=== PATIENT | female | born 1990 | race Caucasian/White ===

== ENCOUNTER → 2021-04-03 11:42 | Outpatient (BNVA) | payer MEDICAID, SELFPAY | PROVIDERS: Family Provider Nurse Practitioner; PCP Nurse Practitioner; Visit Provider Nurse Practitioner Family | DX: Z20.822 Contact with and (suspected) exposure to COVID-19 (principal); H66.001 Acute suppurative otitis media without spontaneous rupture of ear drum, right ear | CPT/HCPCS: 87635 ==

== ENCOUNTER → 2021-04-12 12:05 | Outpatient (BNVA) | payer MEDICAID, SELFPAY | PROVIDERS: Family Provider Nurse Practitioner; PCP Nurse Practitioner; Visit Provider Nurse Practitioner Family | DX: M54.5 Low back pain (principal); R05 Cough; Z12.4 Encounter for screening for malignant neoplasm of cervix; Z01.419 Encounter for gynecological examination (general) (routine) without abnormal findings | CPT/HCPCS: 71046; 80053; 80061; 81000; 83036; 84403; 84443; 85025; 87491; 87591; 87661; 87806; 88175 ==

== ENCOUNTER → 2021-05-22 13:36 | Outpatient (BNVA) | payer MEDICAID, SELFPAY | PROVIDERS: Family Provider Nurse Practitioner; PCP Nurse Practitioner; Visit Provider Nurse Practitioner Family | DX: Z20.822 Contact with and (suspected) exposure to COVID-19 (principal) | CPT/HCPCS: 87635 ==

== ENCOUNTER → 2021-05-31 07:57 | Outpatient (BNVA) | payer MEDICAID, SELFPAY | PROVIDERS: Family Provider Nurse Practitioner; PCP Nurse Practitioner; Visit Provider Obstetrics & Gynecology | DX: R87.612 Low grade squamous intraepithelial lesion on cytologic smear of cervix (LGSIL) (principal) | CPT/HCPCS: 81025; 88305 ==

== ENCOUNTER 2021-06-12 13:15 | Outpatient (CLI) | payer MEDICAID, SELFPAY ==
--- NOTE | 2021-06-12 13:22 | US_ITS ---
WS: [id number] ULTRASOUND BILATERAL BREAST, limited HISTORY: SMALL LUMP 6 O'CLOCK LEFT BREAST COMPARISON: None available. TECHNIQUE: 2-D and Doppler. RIGHT breast, limited. Ultrasound performed from 7-12 o'clock. No underlying abnormalities are identi fied. No solid or cystic masses or shadowing. LEFT breast, limited. Ultrasound performed from 6:00 to 12:00. No solid or cystic masses or shadowing . US/US breast BI limited* [id number] IMPRESSION: BI-RADS: 1-Negative FOLLOW-UP: See Report Negative bilateral breast ultrasound. No additional imaging necessary at this t dulce maria.
== END 2021-06-12 13:16 | disposition home or self-care (01) ==
LOC: RAD 13:16
PROVIDERS: PCP Nurse Practitioner; Visit Provider Nurse Practitioner Family
DX: N63.25 Unspecified lump in the left breast, overlapping quadrants (principal)
CPT/HCPCS: 76642

== ENCOUNTER → 2021-07-05 13:04 | Outpatient (BNVA) | payer MEDICAID, SELFPAY | PROVIDERS: PCP Nurse Practitioner; Visit Provider Obstetrics & Gynecology | DX: R39.9 Unspecified symptoms and signs involving the genitourinary system (principal); R10.2 Pelvic and perineal pain | CPT/HCPCS: 76830; 81000 ==

== ENCOUNTER → 2021-08-23 08:19 | Outpatient (BNVA) | payer MEDICAID, SELFPAY | PROVIDERS: PCP Nurse Practitioner Family; Visit Provider Obstetrics & Gynecology | DX: Z20.822 Contact with and (suspected) exposure to COVID-19 (principal); R10.2 Pelvic and perineal pain | CPT/HCPCS: 87635 ==

== ENCOUNTER 2021-08-28 12:55 | Observation (INO) | payer MEDICAID, SELFPAY ==
[2021-08-26 10:43] VITALS: BMI 37.5
[2021-08-26 10:56] LABS: OR HCG Qualitative Urine Negative (Negative)
--- NOTE | 2021-08-26 15:52 | ANES.PREANE2 ---
Pre-Anesthetic Assessment Pre-Anesthetic Assessment: Height/Weight: Height 1.5 m Weight 84.368 kg Proposed Procedure: Operation Date: 08/28/21 09:05 Proposed Procedures p Laparoscopic Assist Vaginal Hysterectomy 74202 R10.2(Not Applicable) - Nahun Mcgowan MD Was Beta Aletha taken within 24 hours: N/A Was Clonidine taken within 24 hours: N/A Social: Social History: Tobacco and No alcohol Exam: Pre-Anes Outpt Exam: alert, oriented x 3, clear to auscultation bilaterally and regular rate & rhythm Airway: Submandibular: WNL Cervical ROM: WNL MP: 2 Dentition: Full Pulmonary: Pulmonary: Asthma and COPD Metabolic: Metabolic: Morbid obesity Anesthetic Plan: ASA status: 2 Anesthesia: General Risk of > 500 ml blood loss (7ml/kg in children): No PFSH Anesthesia PFSH: Medical History Depression PCOS (polycystic ovarian syndrome) PID (pelvic inflammatory disease) Surgical History Hx of laparoscopy Hx of tubal ligation Family History Mother , age 46; lung Cancer Grandmother Cancer lung and cervical Diabetes Stroke Family/Other Breast cancer maternal aunts x 3 Denies family history of CAD (coronary artery disease) Clotting disorder Bleeding disorder Social History (Updated 08/26/21 @ 08:55 by Shaista Kumar RN) Smoking and tobacco status: current every day smoker cigarettes [ Other cigarette details: less than 1 ppd ] Alcohol intake: current Alcohol intake frequency: holidays/special occasions only Alcohol type: beer Substance/Drug Use: current Substance/Drug use frequency: few times a month Substance/Drug use type: Marijuana Other substance/drug use details: last used last week Female Reproductive History: Date of last menstrual period: 08/23/21 Data Anesthesia Other Labs: Laboratory Results - last 48 hr 08/26/21 10:36 Urine HCG, Qual Negative Cardiac Studies: No Data to Display
[2021-08-28] VITALS (19 sets, daily range): BP systolic 111–155; BP diastolic 68–113; PULSE 57–102; RESP 16–18; TEMP 36.2–37; O2SAT 95–99
[2021-08-28] MEDS: scopolamine 1.5 Patch 1 PATCH TRANSDERMA (10:24)
[2021-08-28] MEDS: sodium chloride 0.9% 500 ML IV (10:25)
--- NOTE | 2021-08-28 10:44 | W.PM.OPSUD ---
Surgery/Procedure H&P Update DATE OF PROCEDURE: August 28, 2021 DATE H&P PERFORMED: 08/26/21 H&P UPDATE INFORMATION: I have reviewed H&P completed within last 30 days, I have examined patient prior to procedure and No changes to prior documentation PREOP DIAGNOSIS: Chronic pelvic pain PLANNED PROCEDURE: Operation Date: 08/28/21 11:05 Proposed Procedures p Laparoscopic Assist Vaginal Hysterectomy 84695 R10.2(Not Applicable) - Nahun Mcgowan MD
[2021-08-28] MEDS: sodium chloride 0.9% 1,000 ML 30 ML IV (10:50)
--- NOTE | 2021-08-28 10:52 | P.ANESUD_ITS ---
Pre-Anesthetic Update Pre-Anesthetic Assessment: Date of Surgery/Procedure: 08/28/21 Preop Malini gnosis: Chronic pelvic pain Proposed Procedure: Operation Date: 08/28/21 11:05 Proposed Procedures p Laparoscopic Assist Vaginal Hysterectomy 74427 R10.2(Not Applicable) - Nahun Mcgowan MD Any changes to Pre-Anesthetic Assessment?: No Last Intake: Intake Last Liquid Date 08/27/21 Last Liquid Time 22:00 Last Solid Date 08/27/21 Last Solid Time 20:00 Labs Last 48hrs: Laboratory Results - last 48 hr 08/26/21 10:36 Urine HCG, Qual Negative Vitals: Temperature 98.6 F 08/28/21 09:44 Temperature Source Temporal Artery S can 08/28/21 09:44 Pulse Rate 71 08/28/21 09:44 Respiratory Rate 18 08/28/21 09:44 Blood Pressure 138/82 08/28/21 09:44 Blood Pressure Alexa n 100 08/28/21 09:44 Pulse Oximetry 98 08/28/21 09:44 Oxygen Delivery Me thod 08/28/21 09:45 Exam: Pre-Anes Outpt Exam: alert, oriented x 3, clear to auscultation bilaterally and regular rate & rhythm Cardiac Studies: No Data to Display
[2021-08-28 10:54] LABS: Basophils % 0.4 %; Eosinophils # 0.1 10^3/uL (0.0-0.8); Eosinophils % 1.6 %; Hematocrit 44.5 % (37.0-47.0); Hemoglobin 14.7 g/dL (11.5-15.3); Lymphocytes # 2.2 10^3/uL (0.8-4.8); Lymphocytes % 31.4 %; Mean Corpuscular Hemoglobin 30.8 pg (28.0-34.0); Mean Corpuscular Volume 93.1 fl (81-99); Mean Platelet Volume 10.7 fL (7.4-10.4); Monocytes # 0.3 10^3/uL (0.2-0.9); Monocytes % 4.2 %; Neutrophils # 4.26 10^3/uL (1.8-7.7); Neutrophils % 62.3 %; Nucleated Red Blood Cells % 0 %; Platelet Count 254 10^3/cmm (130-400); Red Blood Count 4.78 10^6/uL (4.1-5.3); Red Cell Distribution Width 12.8 % (12.1-15.1); White Blood Count 6.9 10^3/uL (4.0-10.0)
[2021-08-28] MEDS: ceFOXitin 2,000 MG in sodium chloride 0.9% (plus) 50 ML 100 MG IV (10:55)
[2021-08-28 11:08] LABS: Alanine Aminotransferase 13 U/L (0-33); Albumin Level 4.5 g/dL (3.5-5.2); Alkaline Phosphatase 54 IU/L (35-105); Anion Gap 17.1 (5-19); Aspartate Amino Transferase 14 U/L (0-32); Blood Urea Nitrogen 9 mg/dL (6-20); Calcium 8.4 mg/dL (8.5-10.5); Carbon Dioxide 21 mmol/L (22-29); Chloride 106 mmol/L (98-107); Globulin 1.9 g/dL (1.3-4.6); Glomerular Filtration Rate 99.6 mL/min (90-130); Glucose 89 mg/dL (65-115); Osmolality Calculated 288 mOsm/kg (285-295); Potassium 4.1 mmol/L (3.5-5.1); Sodium 140 mmol/L (136-145); Total Bilirubin 0.6 mg/dL (0.15-1.2); Total Protein 6.4 g/dL (6.6-8.7)
[2021-08-28 11:10] LABS: OR HCG Qualitative Urine Negative (Negative)
[2021-08-28 11:43] LABS: Urine Color Dark Yellow (Yellow)
[2021-08-28 11:44] LABS: Add Urine Microscopic? YES; Bacteria Urine 1+ /hpf; Bilirubin Urine Neg (Negative); Blood Urine 3+ (Negative); Glucose Urine UA Norm (Normal); Ketones Urine Negative (Negative); Leukocyte Esterase Urine Negative (Negative); Mucus Urine 1+ /hpf; Nitrate Urine Negative (Negative); Protein Urine Neg (Negative); RBC Urine 15-25 /hpf (0-2); Urine Appearance Hazy (CLEAR); Urobilinogen Urine Norm (Negative); WBC Urine 0-4 /hpf (0-5); pH Urine 5 (5-7)
[2021-08-28 11:45] LABS: Add Urine Culture? No
--- NOTE | 2021-08-28 12:23 | P.OP_ITS ---
Operative Report Date of procedure: August 28, 2021 Pre-op Diagnosis: Chronic pelvic pain Post-op diagnosis: same Post-op Findings: Normal size uterus Procedure Done: Laparoscopic-assisted total vaginal hysterectomy Specimens removed/disposition: Uterus Pathology: Uterus Surgeon: Nahun Mcgowan MD Anesthesia: General Estimated blood loss (mL): 200 IV fluids (mL): 700 Urine output (mL): 400 Condition: stable Disposition: PACU Procedure: After discussing informed consent again, the patient was taken to the operating room where general anesthesia was administered. She was placed in the dorsal lithotomy position in low stirrups and prepped and draped in sterile fashion. Pre-Procedure Time-Out verifying the correct patient identity, correct procedure verified with consent, correct site and side, correct patient position, availability of correct implants and any special equipment or requirements was performed and acknowledge by the OR team. After the initial preparation, the procedure commenced at the vagina. With a Bookwalter vaginal retractor was place to visualize the cervix; the anterior and posterior lips of the cervix were separately grasped and clamped with morris tooth tenaculum. The cervix was then dilated to a #6 hegar dilator an d a uterine manipulator within the uterine cavity for manipulation purposes being careful not to puncture the uterus. A Nathan catheter was placed in the bladder. Attention was then turned to the abdomen. The umbilical region was infiltrated with 0.5% Marcaine with epinephrine. Following infiltration with Marcaine, an intraumbilical incision was made and the Verres needle was gently advanced taking care to feel for the typical sensation of penetrating the peritoneum. With CO2 infiltration, an opening pressure of 5 mmHg was noted, and following this, a pneumoperitoneum of 15 mmHg was created. A 5 mm Optiview trocar was then passed through the same incision under direct visualization. Trocar was removed and the laparoscope was then inserted through the trocar sleeve. Visualization of the peritoneal cavity was then obtained and a brief inspection did not reveal any signs of complications from entry. Under direct observation, a second incision was made 3 cm above the symphysis pubis, and a 5 mm trocar and sleeve were admitted into the abdomen under direct, laparoscopic visualization without complication. Once the placement of the ports was complete, the actual laparoscopic procedure began. The pelvic contents were visualized and noted an enlarged irregular uterus, deep cul-de-sac, normal bilateral fallopian tubes and ovaries normal, normal appendix, and both ureters were identified crossing the pelvic brim and pelvic sidewall. The mesosalpinx was then sequentially, clamped, ligated, and cut using the Enseal device working alongside the length of the tube and towards the cornua. The left round ligament was grasped coagulated/sealed and transected using Enseal device. The left broad ligament was opened down to the level of the uterine artery and vein. The right mesosalpinx was then sequentially, clamped, ligated, and cut using the Enseal device working alongside the length of the tube and towards the cornua. The right round ligament was grasped coagulated/sealed and then transected with the Enseal device, and the right broad ligament was opened down to the level of the right uterine artery and vein. Peritoneum of the lower uterine segment was entered using Enseal, and the bladder was dissected off the lower uterine segment using blunt dissection. Careful inspection revealed complete hemostasis. Attention was then turned to the vaginal aspect of the surgery. The Nathan catheter was clamped. A Bookwalter vaginal retractor was placed in the vagina and the uterine manipulator was removed. The tenaculum was repositioned anteriorly and posteriorly. A circumferential incision was made at the cervical vaginal reflection using cautery. This was undermined first anteriorly and a colpotomy made without difficulty. This was then repeated posteriorly and a similar colpotomy made. Beginning first on the patient's left, the uterosacral and cardinal ligament was clamped, sealed, divided with the Enseal device and suture ligated. Two bites were required to reach the previous dissection margin of the left side. The same process was then repeated on the patient's right hand side, at which point, the specimen was completely freed. Once the sutures had been placed and the pedicles secured, the uterus along with both tubes and ovaries were removed transvaginally without difficulty. All pedicles were inspected and hemostasis was confirmed. The patietn was given indigo carmine. The vaginal vault was then oversewn with a running locking Vicryl suture, securing first the posterior edge of the cuff followed by the anterior edge. Good hemostasis was obtained. Two [id number] sutures were then placed across the vaginal vault to close it. Once these had been tied off, all sutures were trimmed. All instruments were removed from the vagina at this time. Then attention was again turned back to the abdomen and inspected the abdomen to ensure complete hemostasis. Once the entire abdomen was inspected. The ports were then removed under direct visualization being sure to note hemostasis of the port sites on removal. The incisions were then closed with interrupted Monocryl sutures and Dermabond adhesive. The patient tolerated the procedure well, anesthesia reversed, and the patient was taken to the recovery room in stable condition. All sponges, instruments, and sharps were counted and correct x 3. Associated Problem List Diagnoses (1) Pelvic pain: (2) Low grade squamous intraepithelial lesion (LGSIL) on Papanicolaou smear of cervix:
[2021-08-28] MEDS: fentaNYL 50 mcg/mL INJ 2mL IVP (12:50)
--- NOTE | 2021-08-28 14:17 | ANE.PACU2 ---
Inpatient post-anesthesia follow up: Airway intact: Yes Vital signs: Temperature 97.1 F Pulse Rate 62 Respiratory Rate 17 Blood Pressure 149/97 Pulse Oximetry 95 Oxygen Delivery Me thod Room Air Oxygen Flow Rate Fraction of Inspir ed Oxygen Hydration adequate: Yes Nausea and vomiting: No Pain level: 2 Mental status: Baseline
[2021-08-28] MEDS: dextrose 5%-lactated ringers 1,000 ML 125 ML IV (14:24)
[2021-08-28] MEDS: ketorolac 30 mg/mL INJ IVP ×2 (14:24→21:18)
[2021-08-28] MEDS: HYDROcodone-acetaminophen 5-325 mg Tablet PO (15:48)
[2021-08-28] MEDS: nicotine 21 mg Patch 1 PATCH TRANSDERMA (17:49)
[2021-08-28] MEDS: docusate sodium 100 mg Capsule PO (18:50)
[2021-08-29] MEDS: HYDROcodone-acetaminophen 5-325 mg Tablet PO (02:22)
[2021-08-29 04:51] LABS: Hematocrit 40.2 % (37.0-47.0); Hemoglobin 13.2 g/dL (11.5-15.3); Mean Corpuscular HGB Conc 32.8 g/dL (30.0-36.0); Mean Corpuscular Hemoglobin 30.1 pg (28.0-34.0); Mean Corpuscular Volume 91.6 fl (81-99); Mean Platelet Volume 10.3 fL (7.4-10.4); Platelet Count 229 10^3/cmm (130-400); Red Blood Count 4.39 10^6/uL (4.1-5.3); Red Cell Distribution Width 12.8 % (12.1-15.1); White Blood Count 9.4 10^3/uL (4.0-10.0)
[2021-08-29 06:04] VITALS: BP 112/70; PULSE 77; RESP 16; O2SAT 97
[2021-08-29] MEDS: nicotine 21 mg Patch 1 PATCH TRANSDERMA (08:52)
[2021-08-29] MEDS: docusate sodium 100 mg Capsule PO (08:53)
--- NOTE | 2021-08-29 09:32 | PM.OBGYDC ---
Discharge Providers [employer]ING [employer] TENDER Date of Admission: 08/28/21 12:55 Date of Discharge: 08/29/21 Attending Provider at Admission: Nahun Mcgowan MD Attending Provider at Discharge: Nahun Mcgowan MD Primary Care Provider: BEE Brand Diagnoses at Discharge Discharge Diagnosis (1) Pelvic pain: Status: Acute (2) Low grade squamous intraepithelial lesion (LGSIL) on Papanicolaou smear of cervix: Status: Acute Reason for Visit Reason for Visit: Chronic pelvic pain Hospital Course Hospital Course Mrs. Cardona 30-year-old female with chronic pain unresponsive to medical management, admitted for planned laparoscopic-assisted vaginal hysterectomy. The LAVH was performed without complications. Overnight observation was uneventful. She is afebrile and hemodynamically stable postoperative day 1. Tolerating diet well. Ambulating without difficulty. Pain well under control. Physical Exam Narrative: EXAM NARRATIVE: GA: Alert and oriented ?3. HEENT: WNL. Heart: Regular rate and rhythm. Lungs: Clear to auscultation bilaterally. Abdomen: Bowel sounds present, nontender, minimal tenderness, incision clean and dry, no redness, pain or edema. CHEF FRENCH: scant spotting bleeding. Extremities: No edema, no cyanosis, no calves pain. Urinary Catheter Management^: Nathan Latex: Cath Placed During This Visit: yes Urinary Catheter Date of Insertion: 08/28/21 Urinary Catheter Time of Insertion: 11:20 History History History 7 Term 3 Miscarriages/Ectopic 3 1 Living Children 3 Discharge Data Data Completed and Pending: Pending at discharge Category Date Time Status ES surgery / GI i mages Routine Exams 08/28/21 10:34 Taken Pathology: Surgic al [PTH] Routine Pth 08/28/21 12:31 Received Labs from last 24 hours 08/29/21 08/28/21 08/28/21 04:40 10:15 10:15 WBC 9.4 RBC 4.39 Hgb 13.2 Hct 40.2 MCV 91.6 MCH 30.1 MCHC 32.8 RDW 12.8 Plt Count 229 MPV 10.3 Neut % (Auto) Lymph % (Auto) [place] % (Auto) Eos % (Auto) Baso % (Auto) Neut # (Auto) Lymph # (Auto) [place] # (Auto) Eos # (Auto) Baso # (Auto) Nucleated RBC % (a uto) Nucleated RBCs # Sodium 140 Potassium 4.1 Chloride 106 Carbon Dioxide 21 L Anion Gap 17.1 BUN 9 Creatinine 0.7 GFR Calculation 99.6 Glucose 89 Calculated Osmolal ity 288 Calcium 8.4 L Total Bilirubin 0.6 AST 14 ALT 13 Alkaline Phosphata se 54 Total Protein 6.4 L Albumin 4.5 Globulin 1.9 Urine Color Urine Appearance Urine pH Ur Specific Gravit y Urine Protein Urine Glucose (UA) Urine Ketones Urine Blood Urine Nitrate Urine Bilirubin Urine Urobilinogen Ur Leukocyte Barbara ase Urine RBC Urine WBC Ur Squamous Epith Cells Amorphous Sediment Urine Bacteria Urine Mucus Urine HCG, Qual Blood Type A Positive Rho(D) Type Positive Antibody Screen Negative 08/28/21 08/28/21 08/28/21 10:15 08:03 08:03 WBC 6.9 RBC 4.78 Hgb 14.7 Hct 44.5 MCV 93.1 MCH 30.8 MCHC 33.0 RDW 12.8 Plt Count 254 MPV 10.7 H Neut % (Auto) 62.3 Lymph % (Auto) 31.4 [place] % (Auto) 4.2 Eos % (Auto) 1.6 Baso % (Auto) 0.4 Neut # (Auto) 4.26 Lymph # (Auto) 2.2 [place] # (Auto) 0.3 Eos # (Auto) 0.1 Baso # (Auto) 0.0 Nucleated RBC % (a uto) 0 Nucleated RBCs # 0.0 Sodium Potassium Chloride Carbon Dioxide Anion Gap BUN Creatinine GFR Calculation Glucose Calculated Osmolal ity Calcium Total Bilirubin AST ALT Alkaline Phosphata se Total Protein Albumin Globulin Urine Color Dark yellow Urine Appearance Hazy A Urine pH 5 Ur Specific Gravit y 1.010 Urine Protein Neg Urine Glucose (UA) Norm Urine Ketones Negative Urine Blood 3+ H Urine Nitrate Negative Urine Bilirubin Neg Urine Urobilinogen Norm Ur Leukocyte Barbara ase Negative Urine RBC 15-25 H Urine WBC 0-4 H Ur Squamous Epith Cells 5-10 H Amorphous Sediment Not Reportable Urine Bacteria 1+ H Urine Mucus 1+ Urine HCG, Qual Negative Blood Type Rho(D) Type Antibody Screen Vitals: Last Vital Signs Temp 98.4 F 08/28/21 17:52 Pulse 77 08/29/21 06:04 Resp 16 08/29/21 06:04 BP 112/70 08/29/21 06:04 Pulse Ox 97 08/29/21 06:04 Discharge Plan Discharge Patient Disposition: Home Condition: Stable Prescriptions: New ibuprofen 800 mg tablet 800 mg PO TID PRN (Reason: pain) Qty: 60 RF: 0 hydrocodone-acetaminophen 5-325 mg tablet 1 tab PO Q4H PRN (Reason: pain) Qty: 30 RF: 0 acetaminophen 325 mg capsule 325 mg PO Q4H PRN (Reason: fever or pain) Qty: 60 RF: 0 Continued albuterol sulfate [ProAir HFA] 90 mcg/actuation HFA aerosol inhaler See Rx Instructions .ROUTE .COMPLEX Qty: 9 RF: 2 Discharge Orders: Discharge Order (Routine); Ordered 08/29/21 Ordered By: Nahun Mcgowan Referrals: Nahun Mcgowan MD [Physician] - 09/02/21 12:45 pm (Your 1 week incision check is scheduled for 09/02/21 @12:45. Your 6 week post-op appointment is scheduled for 10/08/21 @9:15. ) Discharge Diet: Usual diet Discharge Activity: Increase activity as tolerated Patient Instructions: Laparoscopic Hysterectomy (DC), OB Abdominal Surgery - [facility], OB Discharge Report, OB Food/Drug Interaction Guide, Opioid Safety Activity Restrictions/Additional Instructions: 1. Please call [facility] on next working day to make your post-operative appointment in 2 weeks. 2. Please stay home until you come back to the clinic on first post-operative check up. 3. Please follow instructions on your medications CAREFULLY. 4. If you have abdominal incision, do not cover it unless dressing is necessary because of drainage. OK to shower, but avoid bath. Leave steri-strips until they fall off. If they are still on one week after surgery, you may remove them. 5. If you had vaginal surgery or vaginal repair, Dr. Mcgowan may instruct you to take SITZ bath. 6. Yellow, blood tinged odorous vaginal discharge is usually normal after hysterectomy or vaginal surgeries. 7. No sexual intercourse, tampons, or douches until you are completely released from the post-operative care. 8. Avoid constipation by eating right and maybe using some Metamucil or Milk of Magnesia. 9. All prescription refills are given during the working hours. Please do no wait till it runs out. Call the clinic at [phone] before your medication runs out. The clinic will get in touch with your doctor to prescribe medications if necessary. 10. Please remain within 40 mile radius from our hospital because emergencies do happen now and then during the post-operative period. 11. If you have stairs at home, take one step at a time slowly and minimize the number of trips. It helps to stay in one floor for the next few days. No lifting except what you can lift by one hand until you are released from the post-operative care. 12. Driving is discouraged until you are well healed. It may be 3-4 weeks before you feel strong enough to drive. You should be able to turn and look through the rear window without pain and you should be able to push the brake pedal very hard without pain before you drive. No fast rules, but SAFETY should be your primary concern. DO NOT drive if you are on sedating medications such as narcotics. 13. Call the clinic (during working hours) to make urgent appointment or go to the Emergency room, if any of the following occurs: i. Vaginal bleeding becomes heavy, more than a period. ii. Incision becomes red and sore, or drains pus. iii. Your temperature is over 100.4 or you have chill. iv. IV site becomes red and swollen (a little ``knot?? is usually OK) v. Persistent nausea and vomiting vi. Persistent constipation or diarrhea vii. Rash or allergic reaction to medications. Discharge Attestations [employer] M[employer] TENDER Time Spent in Discharge Care*: greater than 30 min Coding Level of Care Code Acute Charge Aide for [facility] Fwd Diagnoses Pelvic pain R10.2 Low grade squamous intraepithelial lesion (LGSIL) on Papanicolaou smear of cervix R87.612
[2021-08-29 10:10] VITALS: BP 125/84; PULSE 66; RESP 18; TEMP 36.6; O2SAT 99
== END 2021-08-29 10:10 | disposition home or self-care (01) ==
LOC: OBGYN 12:55
PROVIDERS: Anesthesiology; Admitting Provider Obstetrics & Gynecology; PCP Nurse Practitioner Family; Visit Provider Obstetrics & Gynecology
PROC: 0UT9FZZ Resection of Uterus, Via Natural or Artificial Opening With Percutaneous Endoscopic Assistance (ICD-10-PCS; CPT 58550; principal; 2021-08-28 11:00)
DX: R10.2 Pelvic and perineal pain (principal); R87.612 Low grade squamous intraepithelial lesion on cytologic smear of cervix (LGSIL); J44.9 Chronic obstructive pulmonary disease, unspecified; E66.01 Morbid (severe) obesity due to excess calories; Z68.37 Body mass index [BMI] 37.0-37.9, adult; F17.210 Nicotine dependence, cigarettes, uncomplicated
CPT/HCPCS: 58550; 36415; 80053; 81001; 81025; 84703; 85025; 85027; 86850; 86900; 88307; G0378; J0694; J1200; J1885; J2704; J2710; J3010; J3490; J7030; J7040

== ENCOUNTER → 2021-10-25 14:19 | Outpatient (BNVA) | payer MEDICAID, SELFPAY | PROVIDERS: PCP Nurse Practitioner Family; Visit Provider Obstetrics & Gynecology | DX: R35.0 Frequency of micturition (principal) | CPT/HCPCS: 81000 ==

== ENCOUNTER → 2022-07-21 11:38 | Outpatient (BNVA) | payer MEDICAID, SELFPAY | PROVIDERS: PCP Nurse Practitioner Family; Visit Provider Nurse Practitioner Family | DX: R30.9 Painful micturition, unspecified (principal); R10.9 Unspecified abdominal pain; Z11.3 Encounter for screening for infections with a predominantly sexual mode of transmission; Z13.6 Encounter for screening for cardiovascular disorders; R23.3 Spontaneous ecchymoses | CPT/HCPCS: 74018; 80053; 80061; 81000; 82150; 82306; 82607; 83690; 84443; 85025; 85651; 86038; 86140; 86200; 86431; 86592; 86705; 86706; 86709; 86803; 87340; 87491; 87591; 87661; 87806 ==

== ENCOUNTER → 2022-08-18 09:58 | Outpatient (BNVA) | payer MEDICAID, SELFPAY | PROVIDERS: PCP Nurse Practitioner Family; Visit Provider Nurse Practitioner Family | DX: R30.9 Painful micturition, unspecified (principal); R10.9 Unspecified abdominal pain; R10.31 Right lower quadrant pain; N76.0 Acute vaginitis; B96.89 Other specified bacterial agents as the cause of diseases classified elsewhere | CPT/HCPCS: 80053; 81000; 85025 ==

== ENCOUNTER → 2022-09-23 09:42 | Outpatient (BNVA) | payer MEDICAID, SELFPAY | PROVIDERS: PCP Nurse Practitioner Family; Visit Provider Surgery | DX: R10.31 Right lower quadrant pain (principal) | CPT/HCPCS: 99203 ==

== ENCOUNTER 2024-11-18 19:13 | Emergency (ER) | payer BC, MEDICAID, SELFPAY ==
[2024-11-18 19:19] VITALS: BP 160/103; PULSE 71; RESP 18; TEMP 36.6; O2SAT 97
--- NOTE | 2024-11-18 21:37 | CTR_ITS ---
PROCEDURE INFORMATION: Exam: CT Abdomen And Pelvis With Contrast Exam date and time: 11/18/2024 10:47 PM Age: 33 years old Clinical indication: Abdominal pain; Prior surgery; Surgery date: 6+ months; Surgery type: Hysterectomy; C/O periumbilical pain with nausea; Additional info: Diffuse sharp stabbing abdominal pain radiating to her back TECHNIQUE: Imaging protocol: Computed tomography of the abdomen and pelvis with contrast. Radiation optimization: All CT scans at this facility use at least one of these dose optimization techniques: automated exposure control; mA and/or kV adjustment per patient size (includes targeted exams where dose is matched to clinical indication); or iterative reconstruction. Contrast material: OMNI 350; Contrast volume: 100 ml; Contrast route: INTRAVENOUS (IV); COMPARISON: CT abdomen pelvis w con* [id number] 10/11/2018 9:15 PM RADIATION DOSE METRICS: Total DLP (mGy-cm): 533.88 FINDINGS: Lungs: The lung bases are clear. Heart: Heart size is within normal limits. There is no pericardial effusion or pericardial thickening. Liver: The liver is normal. No hepatic masses are identified. Gallbladder and biliary ducts: The gallbladder is contracted. There is no ductal dilatation. Pancreas: The pancreas is normal. Spleen: The spleen is normal. Adrenal glands: The adrenal glands are normal. Kidneys and ureters: There is normal enhancement of the kidneys. No renal calcifications are identified. There is no hydronephrosis. Stomach and bowel: There is no large or small bowel obstruction. There is no evidence of bowel wall thickening. Appendix: A normal appendix is identified. Intraperitoneal space: No inflammatory changes are identified. There is no free fluid or fluid collection seen. There is no pneumoperitoneum. Vasculature: The aorta is normal in course and caliber. No significant atherosclerotic calcifications are present. Lymph nodes: No enlarged lymph nodes are identified. Urinary bladder: Focal thickening of the anterior bladder wall likely related to urachal remnant tissue , and appears increased compared to prior study which may be related to differences in bladder distension. Reproductive: The uterus is absent. Bones/joints: No acute osseous abnormalities are seen. Soft tissues: Tiny periumbilical hernia containing only fat. CT/CT abdomen pelvis w con* [id number] IMPRESSION: 1. No acute intra-abdominal or pelvic process. 2. Focal thickening of the anterior superior bladder wall likely related to remnant urachal tissue. The amount of thickening and adjacent soft tissue extension appears increased compared to prior study which may be related differences in distension of the urinary bladder though warrants further evaluation. Recommend nonemergent urological consultation.
--- NOTE | 2024-11-18 21:38 | W.ED.ABDPA2 ---
HPI - Abdominal Pain General: Chief Complaint: Abdominal Pain Stated Complaint: belly button pain into back purple, swollen Time Seen by Provider: 11/18/24 21:28 History of Present Illness: Just with pain in her abdominal region started around her umbilicus. Radiates to her back feels sharp and stabbing nature. Patient also had nausea and diarrhea. And also some mild hematuria. Patient does have a history of renal stones. Patient says start getting worse over the past several days. She may have lifted a heavy object at work when it started but she is unsure. She denies any fever or chills. Related Data Previous Rx's ?Medication ?Instructions ?Recorded ibuprofen 800 mg tablet 800 mg PO TID PRN pain #60 tabs 08/29/21 ProAir HFA 90 mcg/actuation See Rx Instructions .Route 07/21/22 aerosol inhaler (albuterol sulfate) .COMPLEX #9 grams budesonide-formoterol HFA 160 2 puff inhalation BID #10.2 grams 07/21/22 mcg-4.5 mcg/actuation aerosol inhaler (Symbicort) tamsulosin 0.4 mg capsule 0.4 mg PO DAILY #14 caps 07/21/22 fluconazole 150 mg tablet 150 mg PO Q3D 2 doses #2 tabs 08/18/22 (Diflucan) ciprofloxacin HCl 500 mg tablet 500 mg PO BID #20 tabs 09/01/22 (Cipro) metronidazole 500 mg tablet 500 mg PO BID 10 days #20 tabs 09/01/22 cyanocobalamin (vitamin B-12) See Rx Instructions .Route 11/26/22 1,000 mcg/mL injection solution .COMPLEX #3 mL syringe with needle 3 mL 25 gauge #3 ea 05/28/23 x 1 (BD Luer-Martin Syringe) meloxicam 7.5 mg tablet 7.5 mg PO .Twice daily #14 tabs 11/18/24 mupirocin 2 % topical ointment 1 applic topical BID #22 grams 11/18/24 (Centany) Allergies Allergy/AdvReac Type Severity Reaction Status Date / Time doxycycline Allergy Severe left sided Verified 11/18/24 19:24 numbness, dizzy, lightheaded, rash Review of Systems General: Reports: 10 or more systems reviewed and unremarkable except in HPI and below PFSH ED PFSH: Medical History Asthma Depression PCOS (polycystic ovarian syndrome) PID (pelvic inflammatory disease) Surgical History H/O: hysterectomy 08/28/2021- [facility], performed by Dr. Mcgowan at [facility] Hx of tubal ligation Hx of laparoscopy Family History Mother , age 46; lung Cancer Grandmother Cancer lung and cervical Diabetes Stroke Family/Other Breast cancer maternal aunts x 3 Denies family history of CAD (coronary artery disease) Clotting disorder Bleeding disorder Social History Smoking and tobacco/nicotine status: current every day tobacco/nicotine user (< 1 PPD) cigarettes [ Other cigarette details: less than 1 ppd ] Alcohol intake: current Alcohol intake frequency: holidays/special occasions only Alcohol type: beer Substance/Drug Use: current Substance/Drug use frequency: few times a month Other substance/drug use details: last used last week Physical Exam Const: COMMON NORMALS: no acute distress, average body habitus, patient oriented x3, no limitations, healthy appearing, alert and well nourished HENMT: COMMON NORMALS: normocephalic, atraumatic, hearing grossly normal bilaterally, external ears normal, Normal external nose present, moist oral mucous membranes and oropharynx normal HEAD & SCALP: normocephalic and atraumatic NOSE: Normal external nose present EXTERNAL EAR: Yes external ears normal Neck/C-Spine: COMMON NORMALS: no JVD Chest: COMMONS NORMALS: normal inspection of the chest and normal palpation of entire chest wall Resp: COMMON NORMALS: normal respiratory effort, No retractions, No use of accessory muscles and clear to auscultation bilaterally AUSCULTATION: clear to auscultation bilaterally Cardio: COMMON NORMALS: no JVD, regular rate, regular rhythm, S1 normal heart sound present, S2 normal heart sound present, No gallops present (Cardio), No clicks present (Cardio), No murmurs present (Cardio) and No rub (Cardio) RATE: regular rate RHYTHM: regular rhythm HEART SOUNDS: S1 normal heart sound present and S2 normal heart sound present GI: COMMON NORMALS: Normal to inspection, nondistended, normoactive bowel sounds present, Soft to palpation, No hepatosplenomegaly present and no masses; negative for non-tender (Mild diffusely tender with palpation but worse on the right side of abdomen) PALPATION: Yes Soft to palpation and Yes No hepatosplenomegaly present OTHER: Mild irritation superficially of umbilicus. Neuro: COMMON NORMALS: patient oriented x3 SENSORIUM/ORIENTATION: Yes alert Course Vital Signs: Vital signs: Vital Signs Temperature 97.8 F 11/18/24 19:19 Pulse Rate 63 11/18/24 23:06 Respiratory Rate 18 11/18/24 23:06 Blood Pressure 156/97 11/18/24 23:06 Pulse Oximetry 97 11/18/24 23:06 MDM - Abdominal Pain Medical Decision Making Lab work that includes CBC, lipase, urinalysis, CMP, all essentially unremarkable. Contrasted abdomen pelvis CT scan showed no acute intra-abdominal or pelvic process, patient given 30 mg Toradol IV. Patient will be placed on antibiotic ointment for her umbilical l irritation referred back to her PCP for further evaluation treatment. Medical Records I reviewed the patient's medical records. Lab Data I reviewed the patient's lab results. 11/18/24 21:50 11/18/24 21:50 Labs/Radiology: Radiology Impressions Abdomen/Pelvis CT 11/18/24 21:37 IMPRESSION: 1. No acute intra-abdominal or pelvic process. 2. Focal thickening of the anterior superior bladder wall likely related to remnant urachal tissue. The amount of thickening and adjacent soft tissue extension appears increased compared to prior study which may be related differences in distension of the urinary bladder though warrants further evaluation. Recommend nonemergent urological consultation. Laboratory Results WBC 6.62 10^3/uL (3.29-11.43) 11/18/24 21:50 RBC 4.45 10^6/uL (3.85-5.65) 11/18/24 21:50 Hgb 13.50 g/dL (11.27-16.99) 11/18/24 21:50 Hct 41.1 % (36-47) 11/18/24 21:50 MCV 92.4 fl (85-98) 11/18/24 21:50 MCH 30.3 pg (27-33) 11/18/24 21:50 MCHC 32.8 g/dL (30-55) 11/18/24 21:50 RDW 12.2 % (12.1-15.1) 11/18/24 21:50 Plt Count 191 10^3/cmm (157-399) 11/18/24 21:50 MPV 10.6 fL (7.4-10.4) H 11/18/24 21:50 Neut % (Auto) 47.6 % 11/18/24 21:50 Lymph % (Auto) 44.6 % 11/18/24 21:50 [place] % (Auto) 5.7 % 11/18/24 21:50 Eos % (Auto) 1.4 % 11/18/24 21:50 Baso % (Auto) 0.5 % 11/18/24 21:50 Neut # (Auto) 3.16 10^3/uL (1.8-7.7) 11/18/24 21:50 Lymph # (Auto) 3.0 10^3/uL (0.8-4.8) 11/18/24 21:50 [place] # (Auto) 0.4 10^3/uL (0.2-0.9) 11/18/24 21:50 Eos # (Auto) 0.1 10^3/uL (0.0-0.8) 11/18/24 21:50 Baso # (Auto) 0.0 10^3/uL (0.0-0.1) 11/18/24 21:50 Nucleated RBC % (auto) 0 % 11/18/24 21:50 Nucleated RBCs # 0.0 /100WBC 11/18/24 21:50 Sodium 137 mmol/L (136-145) 11/18/24 21:50 Potassium 3.7 mmol/L (3.5-5.1) 11/18/24 21:50 Chloride 104 mmol/L (98-107) 11/18/24 21:50 Carbon Dioxide 24 mmol/L (22-29) 11/18/24 21:50 Anion Gap 12.7 (5-19) 11/18/24 21:50 BUN 13 mg/dL (6-20) 11/18/24 21:50 Creatinine 0.7 mg/dL (0.5-0.9) 11/18/24 21:50 GFR Calculation 97.6 mL/min (90-130) 11/18/24 21:50 Glucose 97 mg/dL (65-115) 11/18/24 21:50 Calculated Osmolality 284 mOsm/kg (285-295) L 11/18/24 21:50 Calcium 8.7 mg/dL (8.5-10.5) 11/18/24 21:50 Total Bilirubin 0.6 mg/dL (0.15-1.2) 11/18/24 21:50 AST 15 U/L (0-32) 11/18/24 21:50 ALT 7 U/L (0-33) 11/18/24 21:50 Alkaline Phosphatase 53 U/L (35-105) 11/18/24 21:50 Total Protein 6.2 g/dL (6.6-8.7) L 11/18/24 21:50 Albumin 4.3 g/dL (3.5-5.2) 11/18/24 21:50 Globulin 1.9 g/dL (1.3-4.6) 11/18/24 21:50 Lipase 33 U/L (13-60) 11/18/24 21:50 Urine Color Yellow (Yellow) 11/18/24 22:02 Urine Appearance Cloudy (CLEAR) A 11/18/24 22:02 Urine pH 6.0 (5-7) 11/18/24 22:02 Ur Specific [place] 1.025 (1.005-1.030) 11/18/24 22:02 Urine Protein Negative (Negative) 11/18/24 22:02 Urine Glucose (UA) Negative (Normal) 11/18/24 22:02 Urine Ketones Trace (Negative) 11/18/24 22:02 Urine Blood Negative (Negative) 11/18/24 22:02 Urine Nitrate Negative (Negative) 11/18/24 22:02 Urine Bilirubin Negative (Negative) 11/18/24 22:02 Urine Urobilinogen 1.0 mg/dL (Negative) 11/18/24 22:02 Ur Leukocyte Esterase Negative (Negative) 11/18/24 22:02 Urine RBC 3-5 /hpf (0-2) 11/18/24 22:02 Urine WBC 6-10 /hpf (0-5) 11/18/24 22:02 Ur Squamous Epith Cells 6-10 /hpf (0-5) 11/18/24 22:02 Amorphous Sediment Not Reportable 11/18/24 22:02 Urine Bacteria 2+ /hpf (NONE) H 11/18/24 22:02 Hyaline Casts 3.71 /lpf 11/18/24 22:02 All radiology interpretation(s) finalized by discharge Discharge Plan Discharge Patient Disposition: Home Clinical Impression: Abdominal pain Qualifiers: Abdominal location: right lower quadrant Qualified Code(s): R10.31 - Right lower quadrant pain Condition: Stable Prescriptions: New mupirocin [Centany] 2 % ointment 1 applic topical BID Qty: 22 0RF meloxicam 7.5 mg tablet 7.5 mg PO .Twice daily Qty: 14 0RF No Action fluconazole [Diflucan] 150 mg tablet 150 mg PO Q3D Qty: 2 0RF Rx Instructions: repeat in 72 hours if still symptomatic budesonide-formoterol [Symbicort] 160-4.5 mcg/actuation HFA aerosol inhaler 2 puff inhalation BID Qty: 10.2 5RF tamsulosin 0.4 mg capsule 0.4 mg PO DAILY Qty: 14 0RF albuterol sulfate [ProAir HFA] 90 mcg/actuation HFA aerosol inhaler See Rx Instructions .ROUTE .COMPLEX Qty: 9 5RF Dose Instruction: INHALE 2 PUFFS BY MOUTH EVERY 6 HOURS NEEDED FOR SHORTNESS OF BREATH OR WHEEZING Rx Instructions: INHALE 2 PUFFS BY MOUTH EVERY 6 HOURS NEEDED FOR SHORTNESS OF BREATH OR WHEEZING ciprofloxacin HCl [Cipro] 500 mg tablet 500 mg PO BID Qty: 20 0RF metronidazole 500 mg tablet 500 mg PO BID 10 Days Qty: 20 0RF cyanocobalamin (vitamin B-12) 1,000 mcg/mL solution See Rx Instructions .ROUTE .COMPLEX Qty: 3 5RF Dose Instruction: INJECT 1 ML (CC) INTRAMUSCULARLY ONCE EVERY MONTH Rx Instructions: INJECT 1 ML (CC) INTRAMUSCULARLY ONCE EVERY MONTH (DME) BD Luer-Martin Syringe 3 mL 25 gauge x 1 syringe See Rx Instructions .ROUTE .COMPLEX Qty: 3 0RF Dose Instruction: USE 1 SYRINGE ONCE EVERY MONTH Rx Instructions: USE 1 SYRINGE ONCE EVERY MONTH ibuprofen 800 mg tablet 800 mg PO TID PRN (Reason: pain) Qty: 60 0RF Discharge Orders: Discharge ED (Routine); Ordered 11/18/24 Ordered By: Ramsey Chu Referrals: Crista Suarez FNP [Primary Care Provider] - 1 week Patient Instructions: Abdominal Pain (ED) Activity Restrictions/Additional Instructions: Your evaluation in the ER that included lab work, urinalysis, contrasted CT scan of the abdomen pelvis did not show any acute causes of your abdominal pain. Sometimes hernias of the abdominal wall do not show up during these exams. Your umbilicus was irritated you have been prescribed antibiotic cream to apply to this area as directed until resolved. Please follow-up with your family practice physician for further evaluation and treatment. Thank you for choosing [facility] for your healthcare needs today. Please realize that you were seen in the emergency department and that we are providing you with an emergency medical screening exam and this may not be a complete and all exclusive of all testing and/or medical workup we may need to determine your element or severity of your illness. It is very important that you follow-up as instructed with your primary care provider or specialist for the additional evaluation and to discuss your medical treatment plan. You may return to the emergency department should you have concerns or if your condition changes or worsens in any way. Print Language: Greek Coding Level of Care Code ED Central Office Equipment Engineer for Philomena Robles
[2024-11-18 21:46] VITALS: BP 159/111; PULSE 69; RESP 18; O2SAT 99
[2024-11-18 21:56] LABS: Basophils % 0.5 %; Eosinophils # 0.1 10^3/uL (0.0-0.8); Eosinophils % 1.4 %; Hematocrit 41.1 % (36-47); Lymphocytes % 44.6 %; Mean Corpuscular HGB Conc 32.8 g/dL (30-55); Mean Corpuscular Hemoglobin 30.3 pg (27-33); Mean Corpuscular Volume 92.4 fl (85-98); Mean Platelet Volume 10.6 fL (7.4-10.4); Monocytes # 0.4 10^3/uL (0.2-0.9); Monocytes % 5.7 %; Neutrophils # 3.16 10^3/uL (1.8-7.7); Neutrophils % 47.6 %; Nucleated Red Blood Cells % 0 %; Platelet Count 191 10^3/cmm (157-399); Red Blood Count 4.45 10^6/uL (3.85-5.65); Red Cell Distribution Width 12.2 % (12.1-15.1); White Blood Count 6.62 10^3/uL (3.29-11.43)
[2024-11-18 22:10] VITALS: BP 169/101; O2SAT 99
[2024-11-18 22:12] LABS: Alanine Aminotransferase 7 U/L (0-33); Albumin Level 4.3 g/dL (3.5-5.2); Alkaline Phosphatase 53 U/L (35-105); Anion Gap 12.7 (5-19); Aspartate Amino Transferase 15 U/L (0-32); Blood Urea Nitrogen 13 mg/dL (6-20); Calcium 8.7 mg/dL (8.5-10.5); Carbon Dioxide 24 mmol/L (22-29); Chloride 104 mmol/L (98-107); Creatinine Clr Calc Pharmacy 116.7372; Globulin 1.9 g/dL (1.3-4.6); Glomerular Filtration Rate 97.6 mL/min (90-130); Glucose 97 mg/dL (65-115); Lipase 33 U/L (13-60); Osmolality Calculated 284 mOsm/kg (285-295); Potassium 3.7 mmol/L (3.5-5.1); Sodium 137 mmol/L (136-145); Total Bilirubin 0.6 mg/dL (0.15-1.2); Total Protein 6.2 g/dL (6.6-8.7)
[2024-11-18 22:15] LABS: Bilirubin Urine Negative (Negative); Blood Urine Negative (Negative); Glucose Urine UA Negative (Normal); Ketones Urine Trace (Negative); Leukocyte Esterase Urine Negative (Negative); Nitrate Urine Negative (Negative); Protein Urine Negative (Negative); Specific Gravity, Urine 1.025 (1.005-1.030); Urine Appearance Cloudy (CLEAR); Urine Color Yellow (Yellow)
[2024-11-18 22:18] LABS: Add Urine Microscopic? YES; Bacteria Urine 2+ /hpf; Hyaline Casts Urine 3.71 /lpf
[2024-11-18 22:34] VITALS: BP 169/101
[2024-11-18] MEDS: iohexol 350 mg/mL 500 mL Btl (per mL) IV (22:51)
[2024-11-18] MEDS: ketorolac 30 mg/mL INJ IVP (23:05)
[2024-11-18 23:06] VITALS: BP 156/97; PULSE 63; RESP 18; O2SAT 97
[2024-11-19 00:06] VITALS: BP 161/93; PULSE 67; RESP 17; O2SAT 98
== END 2024-11-19 00:09 | disposition home or self-care (01) ==
PROVIDERS: Emergency Provider Emergency Medicine; PCP Nurse Practitioner Family
DX: R10.31 Right lower quadrant pain (principal); F17.210 Nicotine dependence, cigarettes, uncomplicated
CPT/HCPCS: 36415; 74177; 80053; 81001; 83690; 85025; 96374; 99285; J1885

== ENCOUNTER → 2024-12-23 14:58 | Outpatient (BNVA) | payer BC, MEDICAID, SELFPAY | PROVIDERS: PCP Nurse Practitioner Family; Visit Provider Nurse Practitioner Family | DX: R39.9 Unspecified symptoms and signs involving the genitourinary system (principal) | CPT/HCPCS: 81000 ==

== ENCOUNTER → 2024-12-28 08:19 | Outpatient (BNVA) | payer BC, MEDICAID, SELFPAY | PROVIDERS: PCP Nurse Practitioner Family; Visit Provider Nurse Practitioner Family | DX: E53.8 Deficiency of other specified B group vitamins (principal); Z13.6 Encounter for screening for cardiovascular disorders; R53.83 Other fatigue; Z11.3 Encounter for screening for infections with a predominantly sexual mode of transmission | CPT/HCPCS: 80053; 80061; 81003; 81513; 82306; 82607; 83735; 84443; 85025; 86592; 87077; 87086; 87184; 87481; 87491; 87591; 87661; 87806 ==

== ENCOUNTER → 2025-02-13 14:08 | Outpatient (BNVA) | payer BC, MEDICAID, SELFPAY | PROVIDERS: PCP Nurse Practitioner Family; Visit Provider Nurse Practitioner Family | DX: Z01.419 Encounter for gynecological examination (general) (routine) without abnormal findings (principal) | CPT/HCPCS: 81513; 87481; 87491; 87591; 87624; 87661 ==

== ENCOUNTER 2025-02-18 17:41 | Emergency (ER) | payer BC, MEDICAID, SELFPAY ==
[2025-02-18 17:49] VITALS: BP 150/88; PULSE 78; RESP 16; TEMP 36.7; O2SAT 99; BMI 30.2
--- NOTE | 2025-02-18 18:11 | XRR_ITS ---
PROCEDURE INFORMATION: Exam: XR Left Wrist Exam date and time: 02/18/2025 6:19 PM Age: 34 years old Clinical indication: Injury or trauma; Fall; Blunt trauma (contusions or hematomas); Wrist; Left; Additional info: Fall, injury TECHNIQUE: Imaging protocol: Radiologic exam of the left wrist. Views: 3 or more views. COMPARISON: No relevant prior studies available. FINDINGS: Bones/joints: No evidence of acute fracture or dislocation. No erosive disease. No significant degenerative change. Soft tissues: Normal. XR/XR wrist LT min 3V* [id number] IMPRESSION: No acute bony injury.
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
[2025-02-18 19:18] VITALS: BP 133/87; PULSE 87; RESP 16; O2SAT 97
[2025-02-18] MEDS: acetaminophen 325 mg Tablet 650 MG PO (19:44)
[2025-02-18 20:35] VITALS: BP 149/84; PULSE 62; RESP 16; O2SAT 97
== END 2025-02-18 20:36 | disposition home or self-care (01) ==
PROVIDERS: Emergency Provider Physician Assistant; PCP Nurse Practitioner Family
DX: S60.212A Contusion of left wrist, initial encounter (principal); V19.3XXA Pedal cyclist (driver) (passenger) injured in unspecified nontraffic accident, initial encounter
CPT/HCPCS: 73090; 73110; 99283; J9999

== ENCOUNTER 2025-02-27 09:08 | Outpatient (CLI) | payer BC, MEDICAID, SELFPAY ==
--- NOTE | 2025-02-27 09:14 | US_ITS ---
WS: [id number] US pelv w/transvag [id number] HISTORY: PELVIC PAIN, status post hysterectomy. COMPARISON: None available. Uterus is not identified. No abnormality noted at the vaginal stump. Right ovary: 4.4 cm x 3.5 cm x 3.0 cm. Normal size and vascularity, no cystic or solid masses. Small ovarian follicles. Largest follicle measures 2.0 x 2.1 x 1.8 cm. Estimated number of follicles is 10. Left ovary: 3.1 cm x 1.9 cm x 2.0 cm. Normal size and vascularity, no cystic or solid masses. Numerous small peripheral ovarian follicles. Number of follicles estimated to be 12. No free fluid in the cul-de-sac. US/US pelv w/transvag [id number] IMPRESSION: 1. Status post hysterectomy. 2. Small bilateral ovarian follicles. No cyst or solid mass. 3. No free fluid in the pelvis.
--- NOTE | 2025-02-27 10:45 | MM_ITS ---
WS: [id number] DIAGNOSTIC BILATERAL DIGITAL BREAST TOMOSYNTHESIS MAMMOGRAPHY WITH CAD Bilateral breast ultrasound, limited HISTORY: N64.4 - Mastodynia COMPARISON: None available. TECHNIQUE: Bilateral craniocaudad, mediolateral oblique, and mediolateral views are submitted with tomosynthesis and SM. Spot compression bilateral CC and MLO. Computer aided detection utilized. Breast composition: There are scattered areas of fibroglandular density. Pain markers are placed in the upper outer quadrants of each breast. Palpable marker RIGHT breast towards the upper outer quadrant. No suspicious masses or distortion associated with the markers. There are a few benign calcifications. Bilateral breast ultrasound, limited. RIGHT: There is a small simple cyst measuring 5 x 3 x 4 mm RIGHT breast at 10:00, 3 cm from the nipple. Otherwise normal. LEFT: Ultrasound in the area of pain demonstrates no abnormality. MM/MM diag tomosynthesis [id number] IMPRESSION: BI-RADS: 2 - Benign. FOLLOW UP: Age 42 No mammographic or ultrasound abnormality in the areas of pain. Simple cyst RIGHT upper outer quadrant.
--- NOTE | 2025-02-27 11:15 | US_ITS ---
WS: [id number] DIAGNOSTIC BILATERAL DIGITAL BREAST TOMOSYNTHESIS MAMMOGRAPHY WITH CAD Bilateral breast ultrasound, limited HISTORY: N64.4 - Mastodynia COMPARISON: None available. TECHNIQUE: Bilateral craniocaudad, mediolateral oblique, and mediolateral views are submitted with tomosynthesis and SM. Spot compression bilateral CC and MLO. Computer aided detection utilized. Breast composition: There are scattered areas of fibroglandular density. Pain markers are placed in the upper outer quadrants of each breast. Palpable marker RIGHT breast towards the upper outer quadrant. No suspicious masses or distortion associated with the markers. There are a few benign calcifications. Bilateral breast ultrasound, limited. RIGHT: There is a small simple cyst measuring 5 x 3 x 4 mm RIGHT breast at 10:00, 3 cm from the nipple. Otherwise normal. LEFT: Ultrasound in the area of pain demonstrates no abnormality. US/US breast BI limited* [id number] IMPRESSION: BI-RADS: 2 - Benign. FOLLOW UP: Age 42 No mammographic or ultrasound abnormality in the areas of pain. Simple cyst RIGHT upper outer quadrant.
== END 2025-02-27 09:09 | disposition home or self-care (01) ==
LOC: RAD 09:09
PROVIDERS: PCP Nurse Practitioner Family; Visit Provider Nurse Practitioner Family
DX: N60.01 Solitary cyst of right breast (principal); R10.2 Pelvic and perineal pain
CPT/HCPCS: 76642; 76830; 76856; 77062; G0279

== ENCOUNTER → 2025-05-04 11:20 | Outpatient (BNVA) | payer BC, MEDICAID, SELFPAY | PROVIDERS: PCP Nurse Practitioner Family; Visit Provider Nurse Practitioner Family | DX: M25.512 Pain in left shoulder (principal) | CPT/HCPCS: 73030 ==

== ENCOUNTER 2025-05-09 16:06 | Emergency (ER) | payer BC, MEDICAID, SELFPAY ==
[2025-05-09 16:08] VITALS: BP 144/95; PULSE 73; RESP 14; TEMP 36.8; O2SAT 98; BMI 30.2
--- NOTE | 2025-05-09 16:37 | ED_ITS ---
HPI - Extremity Injury (Upper) General: Chief Complaint: Extremity Injury, Upper Stated Complaint: L shoulder pain, numbness and tingling Time Seen by Provider: 05/09/25 16:10 Source: patient Mode of arrival: ambulatory Limitations: no limitations History of Present Illness: Patient is a nice 34-year-old female presents to ED today with complaint of left shoulder pain. Patient states she has been having left shoulder discomfort for about 4 to 5 weeks. She complains of sharp stabbing pains down her left arm. Pain is worse with range of motion of the shoulder. She is having trouble lifting things secondary to pain in her shoulder. She was reportedly seen by her primary care provider and had x-rays of the shoulder performed. She later had MRI imaging of the shoulder ordered and states this is scheduled for early May. 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 She states she is taking diclofenac from her primary care provider. complaint: injury to: left and shoulder Onset (ago): week(s) Other Extremity Injury: Left: shoulder Other injuries: none Place: work Severity: severe Relieving factors: immobilization Exacerbating factors: movement of extremity Associated symptoms: Reports no associated symptoms and neck pain Related Data Previous Rx's ?Medication ?Instructions ?Recorded ProAir HFA 90 mcg/actuation See Rx Instructions .Route 07/21/22 aerosol inhaler (albuterol sulfate) .COMPLEX #9 grams budesonide-formoterol HFA 160 2 puff inhalation BID #1 0.2 grams 07/21/22 mcg-4.5 mcg/actuation aerosol inhaler (Symbicort) lisinopril 10 mg tablet 10 mg PO DAILY #30 tabs 11/08 diclofenac sodium 75 mg 75 mg PO BID PRN pain #60 ta bs 05/04/25 tablet,delayed release sertraline 25 mg tablet (Zoloft) 25 mg PO DAILY #30 ta bs 05/04/25 bupropion HCl 150 mg 24 hr tablet, See Rx Instructions .Route 05/09/25 extended release .COMPLEX #90 tabs cyclobenzaprine 10 mg tablet 10 mg PO TID #14 tabs methylprednisolone 4 mg tablets in See Rx Instructions PO .COMPLEX 05/09/25 a dose pack (Medrol (Casimiro)) #21 ea tramadol 50 mg tablet 50 mg PO Q6H PRN pain #10 ta bs 05/09/25 Allergies Allergy/AdvReac Type Severity Reaction Status Date / Time doxycycline Allergy Severe left sided Verified 05/09/25 16:12 numbness, dizzy, lightheaded, rash Review of Systems Const: Denies: fever(s) Card: Denies: chest pain Resp: Denies: dyspnea Musc: Reports: neck pain, extremity pain, joint pain (L shoulder) and limited range of motion; Denies: back pain, extremity swelling, joint swelling, joint redness, joint warmth, joint stiffness or muscle cramps Skin/Breast: Denies: rash Neuro: Reports: numbness in extremities and sensory changes; Denies: headache(s) PFS ED PFSH: Medical History Asthma Depression PCOS (polycystic ovarian syndrome) PID (pelvic inflammatory disease) Surgical History H/O: hysterectomy 08/28/2021- [facility], performed by Dr. Mcgowan at [facility] Hx of tubal ligation Hx of laparoscopy Family History Mother , age 46; lung Cancer Grandmother Cancer lung and cervical Diabetes Stroke Family/Other Breast cancer maternal aunts x 3 Denies family history of CAD (coronary artery disease) Clotting disorder Bleeding disorder Social History Smoking and tobacco/nicotine status: current every day tobacco/nicotine user (smokes and vapes) cigarettes [ Other cigarette details: less than 1 ppd ] Alcohol intake: current Alcohol intake frequency: holidays/special occasions only Alcohol type: beer Substance/Drug Use: current Substance/Drug use frequency: few times a month Other substance/drug use details: last used last week Physical Exam Const: COMMON NORMALS: no acute distress, average body habitus, patient orient ed x3, no limitations, healthy appearing, alert and well nourished GENERAL APPEARANCE: cooperative ORIENTATION/CONSCIOUSNESS: Yes awake, Yes oriented to person, Yes oriented to place and Yes oriented to time HENMT: COMMON NORMALS: normocephalic and atraumatic HEAD & SCALP: normal to inspection, normocephalic and atraumatic FACE & SINUS: normal facial exam Neck/C-Spine: COMMON NORMALS: full ROM GENERAL: Yes normal visual inspection, No anterior neck swelling and No submandibular swelling CERVICAL SPINE: No Cervical spine tenderness, Yes Paracervical muscle tenderness, Yes Trapezius muscle tenderness left and No Lhermitte's sign positive Back/Pelvis: COMMON NORMALS: thoracic and lumbar spine normal to inspection, no thoracic nor lumbar tenderness and thoraco-lumbar ROM normal Extremity: COMMON NORMALS: capillary refill normal, no joint enlargement and no clubbing, cyanosis or edema GENERAL: Yes normal exam except as noted LEFT UPPER EXTREMITY: Yes shoulder joint Left shoulder joint: Yes inspection (normal gross inspection of shoulder), Yes palpation (TTP anterior joint line as well as posterior shoulder), Yes ROM (limited passive ROM due to discomfort; no dislocation present) and Yes neurovascular exam (normal) Neuro: COMMON NORMALS: patient oriented x3, moves all extremities, no focal motor deficits and no sensory deficits noted SENSORIUM/ORIENTATION: Yes alert, Yes oriented to person, Yes oriented to place and Yes oriented to time Course Vital Signs: Vital signs: Vital Signs Temperature 98.2 F 05/09/25 16:08 Pulse Rate 73 05/09/25 16:08 Respiratory Rate 14 05/09/25 16:08 Blood Pressure 144/95 05/09/25 16:08 Pulse Oximetry 98 05/09/25 16:08 MDM - Extremity Injury (Upper) Medical Decision Making DDx includes internal derangement L shoulder, shoulder sprain/strain/tendinopathy, shoulder bursitis, cervical radiculopathy. She al ready has an MRI of the shoulder scheduled in 1 to 2 weeks. Recommend she continue her anti-inflammatory. Will prescribe her a muscle relaxer, steroid, and small amount of pain medication. Discussed other therapies such as ice, heat, biofreeze topical therapy. Return precautions discussed. Medical Records I reviewed the patient's medical records. No radiology studies performed this visit Discharge Plan Discharge Patient Disposition: Home Clinical Impression: Internal derangement of left shoulder Condition: Stable Prescriptions: New cyclobenzaprine 10 mg tablet 10 mg PO TID Qty: 14 0RF tramadol 50 mg tablet 50 mg PO Q6H PRN (Reason: pain) Qty: 10 0RF methylprednisolone [Medrol (Casimiro)] 4 mg tablets,dose pack See Rx Instructions .ROUTE .COMPLEX Qty: 21 0RF Rx Instructions: orally per package directions Discontinued ibuprofen 800 mg tablet 800 mg PO TID PRN (Reason: pain) Qty: 30 0RF No Action diclofenac sodium 75 mg tablet,delayed release (DR/EC) 75 mg PO BID PRN (Reason: pain) Qty: 60 0RF sertraline [Zoloft] 25 mg tablet 25 mg PO DAILY Qty: 30 2RF budesonide-formoterol [Symbicort] 160-4.5 mcg/actuation HFA aerosol inhaler 2 puff inhalation BID Qty: 10.2 5RF albuterol sulfate [ProAir HFA] 90 mcg/actuation HFA aerosol inhaler See Rx Instructions .ROUTE .COMPLEX Qty: 9 5RF Dose Instruction: INHALE 2 PUFFS BY MOUTH EVERY 6 HOURS NEEDED FOR SHORTNESS OF BREATH OR WHEEZING Rx Instructions: INHALE 2 PUFFS BY MOUTH EVERY 6 HOURS NEEDED FOR SHORTNESS OF BREATH OR WHEEZING lisinopril 10 mg tablet 10 mg PO DAILY Qty: 30 0RF bupropion HCl 150 mg tablet extended release 24 hr See Rx Instructions .ROUTE .COMPLEX Qty: 90 0RF Dose Instruction: TAKE 1 TABLET BY MOUTH IN THE MORNING Rx Instructions: TAKE 1 TABLET BY MOUTH IN THE MORNING Discharge Orders: Discharge ED (Routine); Ordered 05/09/25 Ordered By: Marci Moody Referrals: Crista Suarez FNP [Primary Care Provider, Family Practice] Patient Instructions: Opioid Safety, Pain Management, Patient Portal & Norberto Instructions Stand Alone Forms: Work/School Release Print Language: Swedish Coding Level of Care Code ED Power Machine Operator for Philomena Robles
== END 2025-05-09 17:04 | disposition home or self-care (01) ==
PROVIDERS: Emergency Provider Physician Assistant; PCP Nurse Practitioner Family
DX: M24.9 Joint derangement, unspecified (principal)
CPT/HCPCS: 99283

== ENCOUNTER 2025-05-19 09:09 | Outpatient (CLI) | payer BC, MEDICAID, SELFPAY ==
--- NOTE | 2025-05-19 09:30 | MR_ITS ---
WS: [id number] MRI LEFT SHOULDER NONCONTRAST TECHNIQUE: Sagittal T2, coronal T1, T2 and proton density imaging. Axial gradient PDE imaging. CLINICAL INFORMATION: M25.512 - Pain in left shoulder COMPARISON: None. FINDINGS: Mild degenerative arthritis AC joint. Moderate downsloping acromion with narrowing of the subacromial space. Impingement on the underlying rotator cuff. Slight subacromial spurring. Small amount of fluid and edema at the AC joint. Small amount of subacromial subdeltoid fluid. Mild tendinopathy distal s upraspinatus and infraspinatus. No high-grade tears. Normal teres minor. Subscapularis tendon appears intact. Biceps tendon appears intact within the bicipital groove. Intra-articular biceps tendon appears intact. Normal bone marrow signal in the humeral head and glenoid. No other acute findings. MR/MR shoulder LT wo con* [id number] IMPRESSION: 1. Moderate degenerative arthritis AC joint with moderate downsloping acromion . Impingement on the supraspinatus and infraspinatus. Slight subacromial spurri ng. 2. Small amount of subacromial subdeltoid fluid. 3. Tendinopathy supraspinatus and infraspinatus. No high-grade rotator cuff te ars. 4. Biceps tendon appears intact within the bicipital groove. Intra-articular b iceps tendon appears intact. 5. No other acute findings.
== END 2025-05-19 09:10 | disposition home or self-care (01) ==
LOC: RAD 09:11
PROVIDERS: PCP Nurse Practitioner Family; Visit Provider Nurse Practitioner Family
DX: M19.012 Primary osteoarthritis, left shoulder (principal); M75.42 Impingement syndrome of left shoulder; R93.7 Abnormal findings on diagnostic imaging of other parts of musculoskeletal system; M67.814 Other specified disorders of tendon, left shoulder
CPT/HCPCS: 73221

== ENCOUNTER → 2025-05-29 14:04 | Outpatient (BNVA) | payer BC, MEDICAID, SELFPAY | PROVIDERS: PCP Nurse Practitioner Family; Visit Provider Nurse Practitioner Family | DX: M43.8X4 Other specified deforming dorsopathies, thoracic region (principal); M50.322 Other cervical disc degeneration at C5-C6 level; M43.12 Spondylolisthesis, cervical region | CPT/HCPCS: 72040 ==

== ENCOUNTER → 2025-06-05 08:34 | Outpatient (BNVA) | payer BC, MEDICAID, SELFPAY | PROVIDERS: PCP Nurse Practitioner Family; Visit Provider Nurse Practitioner | DX: M19.012 Primary osteoarthritis, left shoulder (principal); M67.912 Unspecified disorder of synovium and tendon, left shoulder; M25.812 Other specified joint disorders, left shoulder; M62.838 Other muscle spasm | CPT/HCPCS: 73030 ==

== ENCOUNTER 2025-06-16 08:38 | Outpatient (CLI) | payer BC, MEDICAID, SELFPAY ==
--- NOTE | 2025-06-16 08:45 | MR_ITS ---
WS: [id number] MRI CERVICAL SPINE NONCONTRAST TECHNIQUE: Sagittal T1, T2 and STIR imaging. Axial T2, gradient, and fiesta imaging. CLINICAL INFORMATION: M43.12 - Spondylolisthesis, cervical region COMPARISON: None. FINDINGS: Straightening with reversal of the normal cervical lordosis. Disc bulging worse at C5-6. C2-C3: Normal. C3-C4: Disc osteophyte complex with central disc osteophyte protrusion. Slight indentation on the cervical cord with mild central canal stenosis. Moderate facet arthropathy. Moderate RIGHT bony foraminal narrowing. Mild LEFT bony foraminal narrowing. C4-C5: Disc osteophyte complex with endplate ridging. Mild central canal stenosis. Moderate facet arthropathy. Mild LEFT foraminal narrowing. C5-C6: LEFT subarticular and proximal foraminal protrusion impinges the shoulder of the thecal sac and proximal exiting LEFT C6 nerve root. Recommend correlation for LEFT C6 nerve root symptoms. Mild central canal stenosis. Moderate LEFT foraminal narrowing. Mild RIGHT foraminal narrowing. Mild facet arthropathy C6-C7: Mild disc osteophyte complex with endplate ridging. Mild LEFT foraminal narrowing. Mild facet arthropathy. C7-T1: Endplate ridging. Uncovertebral joint hypertrophy. Mild LEFT greater than RIGHT bony foraminal narrowing. Visualized brain stem structures: Normal. Prevertebral soft tissues: Normal. MR/MR cervical spin wo con* [id number] IMPRESSION: Some images degraded by patient motion due to pain 1. Prominent LEFT subarticular disc protrusion at C5-6 impinging the LEFT suba rticular recess. Mild central canal stenosis at this level. Associated annular tear. Disc material measures 4 mm in AP dimension. Recommend spine surgery or p ain management consultation. Impingement on the proximal exiting C6 nerve root with moderate LEFT proximal foraminal narrowing. 2. Central disc osteophyte protrusion C3-4 with indentation of the cervical co rd and mild central canal stenosis. 3. Mild central canal stenosis C4-5. 4. Multilevel mild to moderate foraminal narrowing described above.
== END 2025-06-16 08:39 | disposition home or self-care (01) ==
LOC: RAD 08:39
PROVIDERS: PCP Nurse Practitioner Family; Visit Provider Nurse Practitioner Family
DX: M43.12 Spondylolisthesis, cervical region (principal); M25.78 Osteophyte, vertebrae; M50.222 Other cervical disc displacement at C5-C6 level; M25.80 Other specified joint disorders, unspecified joint
CPT/HCPCS: 72141

== ENCOUNTER → 2025-07-03 11:14 | Outpatient (BNVA) | payer BC, MEDICAID, SELFPAY | PROVIDERS: PCP Nurse Practitioner Family; Visit Provider Nurse Practitioner | DX: Z01.818 Encounter for other preprocedural examination (principal); M67.814 Other specified disorders of tendon, left shoulder; M19.012 Primary osteoarthritis, left shoulder | CPT/HCPCS: 80053; 81000; 85025 ==

== ENCOUNTER → 2025-07-13 08:58 | Outpatient (BNVA) | payer BC, MEDICAID, SELFPAY | PROVIDERS: PCP Nurse Practitioner Family; Visit Provider Orthopaedic Surgery | DX: M50.322 Other cervical disc degeneration at C5-C6 level (principal); M48.02 Spinal stenosis, cervical region; M54.12 Radiculopathy, cervical region | CPT/HCPCS: 72050; 80053; 81001; 85025 ==

== ENCOUNTER → 2025-07-18 13:29 | Outpatient (BNVA) | payer BC, MEDICAID, SELFPAY | PROVIDERS: PCP Nurse Practitioner Family; Visit Provider Family Medicine | DX: Z01.818 Encounter for other preprocedural examination (principal); R82.71 Bacteriuria; F17.210 Nicotine dependence, cigarettes, uncomplicated; M43.12 Spondylolisthesis, cervical region; M40.292 Other kyphosis, cervical region; M50.30 Other cervical disc degeneration, unspecified cervical region; M50.122 Cervical disc disorder at C5-C6 level with radiculopathy; M50.021 Cervical disc disorder at C4-C5 level with myelopathy; M48.02 Spinal stenosis, cervical region; M50.322 Other cervical disc degeneration at C5-C6 level; M50.321 Other cervical disc degeneration at C4-C5 level; M47.812 Spondylosis without myelopathy or radiculopathy, cervical region | CPT/HCPCS: 81000; 87086 ==

== ENCOUNTER → 2025-07-24 05:55 | Day surgery (SDC) | payer BC, MEDICAID, SELFPAY ==
[2025-07-24] VITALS (12 sets, daily range): BP systolic 133–158; BP diastolic 63–107; PULSE 75–89; RESP 14–20; TEMP 36.2–36.3; O2SAT 96–100; BMI 34.1
--- NOTE | 2025-07-24 06:38 | W.PM.OPSUD ---
Surgery/Procedure H&P Update DATE OF PROCEDURE: July 24, 2025 DATE H&P PERFORMED: 07/13/25 H&P UPDATE INFORMATION: I have reviewed H&P completed within last 30 days, I have examined patient prior to procedure and No changes to prior documentation PLANNED PROCEDURE: Operation Date: 07/24/25 07:00 Proposed Procedures p Anterior Cervical Discectomy & Fusion ACDF(Not Applicable) - Jerry Hanley, DO
[2025-07-24] MEDS: ceFAZolin 2,000 mg SDV 2000 MG IVP (07:18)
--- NOTE | 2025-07-24 07:49 | ANES.PREANE2 ---
Pre-Anesthetic Assessment Height/Weight: Height 1.5 m Weight 76.657 kg Temp Pulse Resp BP Pulse Ox O2 Del Method 97.4 F L 88 18 139/107 98 Room Air 07/24/25 06:22 07/24/25 06:22 07/24/25 06:22 07/24/25 06:22 07/24/25 06:22 07/24/25 06:29 Preop Diagnosis: Cervical stenosis with radiculopathy Operation Date: 07/24/25 07:00 Proposed Procedures p Anterior Cervical Discectomy & Fusion ACDF(Not Applicable) - Jerry Hanley DO Familial anesthetic complications: None Was Beta Aletha taken within 24 hours: N/A Was Clonidine taken within 24 hours: N/A Last intake: Intake Last Liquid Date 07/24/25 Last Liquid Time 01:00 Last Solid Date 07/23/25 Last Solid Time 21:00 Social No alcohol and No tobacco Exam alert, oriented x 3, clear to auscultation bilaterally and regular rate & rhythm Airway Mallampati: Class II Dentition: chipped and other (missing) Pulmonary Asthma CV/HEM Hypertension Metabolic pcos Neuropsych b12 Anesthetic Plan ASA status: 2 Anesthesia: General Risk of > 500 ml blood loss (7ml/kg in children): No Medications/Allergies Home Medications ?Medication ?Instructions ?Recorded ?Confirmed ?Last Taken ?Type ProAir HFA 90 mcg/actuation See Rx Instructions .Route 07/21/22 07/24/25 Unknown Rx aerosol inhaler (albuterol sulfate) .COMPLEX #9 grams budesonide-formoterol HFA 160 2 puff inhalation BID #10.2 grams 07/21/22 07/20/25 Unknown Rx mcg-4.5 mcg/actuation aerosol inhaler (Symbicort) bupropion HCl 150 mg 24 hr tablet, See Rx Instructions .Route 05/09/25 07/24/25 07/18/25 Rx extended release .COMPLEX #90 tabs diclofenac sodium 1 % topical gel 4 g topical QID #100 grams 06/05/25 07/24/25 Unknown Rx celecoxib 200 mg capsule See Rx Instructions .Route 06/19/25 07/24/25 07/18/25 Rx .COMPLEX #60 caps lisinopril 10 mg tablet 10 mg PO DAILY #30 tabs 06/19/25 07/20/25 07/18/25 Rx prednisone 20 mg tablet 20 mg PO DAILY #15 tabs 07/13/25 07/24/25 07/18/25 Rx Allergies Allergy/AdvReac Type Severity Reaction Status Date / Time doxycycline Allergy Severe left sided Verified 07/20/25 11:59 numbness, dizzy, lightheaded, rash Current Medications Generic Name Dose Route Start Last Admin Trade Name Johnq PRN Reason Stop Dose Admin Sodium Chloride 1,000 mls @ 30 mls/hr 07/24/25 06:15 07/24/25 06:33 Sodium Chloride 0.9% IV 07/25/25 06:14 30 mls/hr .Q24H DRISS Administration [facility] Anesthesia Medical History Tendinopathy of left rotator cuff Osteoarthritis of left acromioclavicular joint Asthma Depression PCOS (polycystic ovarian syndrome) PID (pelvic inflammatory disease) Surgical History H/O: hysterectomy 08/28/2021- [facility], performed by Dr. Mcgowan at [facility] Hx of tubal ligation Hx of laparoscopy Family History Mother , age 46; lung Cancer Grandmother Cancer lung and cervical Diabetes Stroke Family/Other Breast cancer maternal aunts x 3 Denies family history of CAD (coronary artery disease) Clotting disorder Bleeding disorder Social History Smoking and tobacco/nicotine status: never used tobacco/nicotine Alcohol intake: current Alcohol intake frequency: holidays/special occasions only Alcohol type: beer Substance/Drug Use: current Substance/Drug use frequency: few times a month Other substance/drug use details: last used last week
[2025-07-24] MEDS: lidocaine-epi 1% PF 1:200,000 30 mL SDV INJECTION (07:55)
[2025-07-24] MEDS: fentaNYL 50 mcg/mL INJ 2mL IVP (09:13)
--- NOTE | 2025-07-24 09:31 | P.OP_ITS ---
Operative Report Date of procedure: July 24, 2025 Pre-op diagnosis: Cervical stenosis with radiculopathy Post-op diagnosis: same Procedure done: 1. Anterior diskectomy C5/6 2. Insertion of cage C5/6 3. Instrumentation with anterior plate from C5-C6 4. Use of allograft Surgeon: Jerry Hanley DO Estimated blood loss (mL): 5 Procedure: 1. Anterior diskectomy C5/6 2. Insertion of cage C5/6 3. Instrumentation with anterior plate from C5-C6 4. Use of allograft The patient was taken to the operating room, where he underwent general endotracheal anesthesia without complications. He was then positioned supine on the operating table, and all areas of impingement were well padded. The arms were carefully padded and tucked at his sides. A roll was placed between the shoulder blades.. An x-ray was done to determine the appropriate level for the skin incision. The entire neck was then sterilely prepped and draped in the usual fashion. Neuromonitoring was attached prior to prepping. A transverse skin incision was made and carried down to the platysma muscle. This was then split in line with its fibers. Blunt dissection was carried down medial to the carotid sheath and lateral to the trachea and esophagus until the anterior cervical spine was visualized. A needle was placed into a disc and an x-ray was done to determine its location. The longus colli muscles were then elevated bilaterally with the electrocautery unit. Self-retaining retractors were placed deep to the longus colli muscle. Attention was brought to the C5/6 level that was confirmed on x-ray. A caspar pin was placed into the C5 vertebrae and the C6 vertebrae. The disk space was then distracted. The microscope was then brought in. A radical anterior discectomies were performed at C5/6. This included complete removal of the anterior annulus, nucleus, and posterior annulus. The posterior longitudinal ligament was removed as were the posterior osteophytes. Foraminotomies were then accomplished bilaterally. This was done using a high speed kamari, kerrison rongeurs and curretes Once all of this was accomplished, the curved currette was used to check for any residual compression. The central canal was wide open as were the foramen. A high-speed bur was used to remove the cartilaginous endplates above and below the interspace. Bleeding cancellous bone was exposed. The disc space were measured and appropriate size cage were placed sterilely onto the field. Allograft graft was packed into the cages. The cage was then placed and there was good juxtaposition against the bleeding decorticated surfaces and good distraction of each interspace. The [place] pins were removed. Bone wax was used to prevent any bleeding from occurring at the pin sites. The appropriate size anterior cervical locking plate was chosen and bent into gentle lordosis. Two screws were then placed into each of the vertebral bodies at C5 and 6. There was excellent purchase. A final x-ray was done confirming good position of the hardware and Cages. The locking screws were then applied, also with excellent purchase. Following a final copious irrigation, there was good hemostasis and no dural leaks. The carotid pulse was strong. The wounds were then closed in layers using 2-0 Vicryl suture for the platysma muscle, 2-0 Vicryl suture for the subcutaneous tissue, and 4-0 monocryl suture in a subcuticular skin closure. Glue was placed followed by application of a sterile dressing. The drain was hooked to bulb suction. A soft collar was applied. The patient was then carefully returned to the supine position on his hospital bed where he was reversed and extubated and taken to the recovery room having tolerated the procedure well.
[2025-07-24] MEDS: HYDROcodone-acetaminophen 5-325 mg Tablet 2 TAB PO (09:48)
--- NOTE | 2025-07-24 09:49 | XR_ITS ---
WS: [id number] Exam: XR cervical spine 3V* [id number] Date/Time of Exam: 07/24/2025 9:49 AM Reason For Exam: OR PIC, ACDF DLP: AP and lateral C-arm images of the C-spine are submitted. Images were obtained for intraoperative visualization purposes.
--- NOTE | 2025-07-24 10:25 | ANE.PACU2 ---
Inpatient post-anesthesia follow up: Airway intact: Yes Vital signs: Temperature 97.3 F Pulse Rate 78 Respiratory Rate 18 Blood Pressure 146/72 Pulse Oximetry 98 Oxygen Delivery Me thod Room Air Oxygen Flow Rate Fraction of Inspir ed Oxygen Hydration adequate: Yes Nausea and vomiting: No Pain level: 1 Mental status: Baseline
== END | disposition home or self-care (01) ==
PROVIDERS: PCP Nurse Practitioner Family; Visit Provider Orthopaedic Surgery
PROC: 0RB30ZZ Excision of Cervical Vertebral Disc, Open Approach (ICD-10-PCS; CPT 22551; principal; 2025-07-24 07:00)
DX: M48.02 Spinal stenosis, cervical region (principal); M54.12 Radiculopathy, cervical region; I10 Essential (primary) hypertension; J45.909 Unspecified asthma, uncomplicated; E28.2 Polycystic ovarian syndrome; F32.A Depression, unspecified; N73.9 Female pelvic inflammatory disease, unspecified; F17.200 Nicotine dependence, unspecified, uncomplicated
CPT/HCPCS: 22551; 22853; 20930; 72040; 76000; A4649; C1713; C1763; C9359; J0330; J0690; J1100; J1171; J2250; J2405; J2704; J3010; J3490; J7030; J9999

== ENCOUNTER → 2025-08-31 10:39 | Outpatient (BNVA) | payer BC, MEDICAID, SELFPAY | PROVIDERS: PCP Nurse Practitioner Family; Visit Provider Orthopaedic Surgery | DX: Z98.890 Other specified postprocedural states (principal); Z98.1 Arthrodesis status | CPT/HCPCS: 72040; 72110 ==